=== PATIENT | male | born 1935 | race Caucasian/White ===

== ENCOUNTER 2016-11-18 05:23 | Day surgery (SDC) | payer MEDICARE, OTHER ==
[2016-11-11 09:26] LABS: HEMATOCRIT 42.7 % (37.9-51.0); HEMOGLOBIN 15.1 g/dL (13.5-17.0); HGB HCT DIFFERENCE 2.6; MEAN CORPUSCULAR HEMOGLOBIN 34.4 pg (27.0-33.4); MEAN CORPUSCULAR HGB CONC 35.4 g/dL (32.0-36.0); MEAN CORPUSCULAR VOLUME 97 fl (80-97); RED BLOOD COUNT 4.39 10^6/uL (4.35-5.55); RED CELL DISTRIBUTION WIDTH 12.9 % (11.5-14.0); WHITE BLOOD COUNT 6.4 10^3/uL (4.0-10.5)
[2016-11-11 09:51] LABS: ALANINE AMINOTRANSFERASE 110 U/L (21-72); ALBUMIN 3.8 g/dL (3.5-5.0); ALKALINE PHOSPHATASE 250 U/L (38-126); AMYLASE 163 U/L (30-110); ANION GAP 11 (5-19); ASPARTATE AMINO TRANSFERASE 57 U/L (17-59); BLOOD UREA NITROGEN 17 mg/dL (7-20); CALCIUM 9.7 mg/dL (8.4-10.2); CARBON DIOXIDE 30 mmol/L (22-30); CHLORIDE 100 mmol/L (98-107); GLUCOSE 92 mg/dL (75-110); POTASSIUM 4.5 mmol/L (3.6-5.0); SODIUM 140.8 mmol/L (137-145); TOTAL PROTEIN 6.8 g/dL (6.3-8.2)
[~2016-11-18 05:23] MED LIST: ACETAMINOPHEN 325 MG TABLET PO PRN; CEFAZOLIN SODIUM 1 GM in DEXTROSE 5%-WATER 50 ML IV PRN; LACTATED RINGERS 1000 ML IV PRN
[2016-11-18 06:22] LABS: PROTHROMBIN TIME 13.4 SEC (11.4-15.4)
[2016-11-18 06:23] LABS: PARTIAL THROMBOPLASTIN TIME 28.5 SEC (23.5-35.8)
[2016-11-18] MEDS ORDERED: BUPIVACAINE HCL 0.25 % INJ/PF (2.5 MG/1 ML) 30 ML VIAL ONE (06:47)
[2016-11-18] MEDS ORDERED: PROPOFOL INJ 200 MG/20 ML VIAL IV ONE (07:14)
[2016-11-18] MEDS ORDERED: MIDAZOLAM 2 MG/2 ML INJ ONE (07:14)
[2016-11-18] MEDS ORDERED: FENTANYL CITRATE INJ/PF 250 MCG/5 ML AMPULE ONE (07:14)
[2016-11-18] MEDS ORDERED: HYDROMORPHONE HCL INJ/PF 2 MG/ML AMPULE ONE (07:14)
[2016-11-18] MEDS ORDERED: EPHEDRINE SULFATE INJ 50 MG/1 ML AMPULE ONE (07:50)
[2016-11-18] MEDS ORDERED: MORPHINE SULFATE 10 MG/ML INJ IV PRN (08:08)
[2016-11-18] MEDS ORDERED: FENTANYL CITRATE INJ/PF 100 MCG/2 ML AMPUL IV PRN ×3 (08:08)
[2016-11-18] MEDS ORDERED: OXYCODONE-ACETAMINOPHEN 5-325 MG TABLET PO PRN ×5 (08:08→11:29)
[2016-11-18] MEDS ORDERED: PROMETHAZINE HCL INJ 25 MG/1 ML VIAL IV PRN ×2 (08:08)
[2016-11-18] MEDS ORDERED: MEPERIDINE HCL/PF INJ 25 MG/1 ML DISP.SYRIN IV PRN (08:08)
[2016-11-18] MEDS ORDERED: DIPHENHYDRAMINE HCL 50 MG/ML VIAL IV PRN (08:08)
[2016-11-18] MEDS ORDERED: ONDANSETRON HCL INJ/PF 4 MG/2 ML SDV IV PRN (09:03)
--- NOTE | 2016-11-18 09:03 | Operative Report ---
Operative Report DATE OF SURGERY: 11/18/16 PREOPERATIVE DIAGNOSIS: 1. Symptomatic cholelithiasis with cholecystitis. 2. Umbilical hernia POSTOPERATIVE DIAGNOSIS: Same OPERATION: 1. Laparoscopic cholecystectomy. 2. Open umbilical herniorrhaphy SURGEON: UBALDO ISAAC 1ST COLD ROLLING SUPERVISOR: EVA JAY ANESTHESIA: GA TISSUE REMOVED OR ALTERED: 1 gallbladder; remnants of hernia sac disposed of COMPLICATIONS: None ESTIMATED BLOOD LOSS: 25 mL INTRAOPERATIVE FINDINGS: See below PROCEDURE: After obtaining informed consent, the patient was taken to the operating room. General Anesthesia was induced; the arms were extended, and the abdomen was exposed, and prepped and draped in a sterile fashion. Instrumentation was set up for laparoscopic cholecystectomy. Surgical plan and surgical timeout were conducted. A semicircular incision was made above the umbilicus. Underlying hernia sac was entered, portions of incarcerated omentum debrided with electrocautery. The viable portion of omentum was oversewn with 2-0 Vicryl suture. He now had access to the peritoneal cavity. A 5 mm port was inserted and the peritoneal cavity and pneumoperitoneum was established. We then placed a 5 mm flexible laparoscope was inserted. Visualization of the peritoneal cavity confirmed safe uneventful entry of the initial port. Under direct visualization 3 additional 5 mm ports were established, one in the subxiphoid position and second in the subcostal position. Visualization of the hepatobiliary anatomy revealed no anatomic variations. A grasper was placed on the fundus of the gallbladder and the gallbladder is elevated over the right surface of the liver; a second grasper was used to grasp the infundibulum of the gallbladder. The neck of the gallbladder and junction with the cystic duct was dissected out. There was thickened inflammatory tissue securing the triangle of Calot. Therefore we began a top-down approach. Graspers were repositioned and the gallbladder was taken down with hook cautery and this down to the neck of the gallbladder. The only filmy adhesions were taken down under direct visualization. Eventually the gallbladder was suspended by the enlarged cystic duct and the cystic artery. The cystic artery was surrounded with a right angle clamp, clipped twice proximally and divided with laparoscopic scissors. The gallbladder was now suspended solely by the cystic duct. The thickened inflammatory tissue around the duct as evidenced of the photographs, we decided to secure the duct with PDS Endoloops. An Endoloop was placed around the neck of the gallbladder and the gallbladder amputated leaving the cystic duct opened. A were no stones or sludge in the cystic duct. We now secured the cystic duct stump with a Endoloop of PDS. Photos were taken. Graspers were repositioned and the gallbladder was removed uneventfully from the abdominal cavity through the super umbilical port site incision. The specimen was examined, then passed off to pathology for permanent analysis. We returned to the peritoneal cavity check for bleeding, and evidence of bile leak, and there was none. We Confirmed satisfactory placement of the Endoloop on cystic duct and an clips on the cystic artery were secured . At this point we felt the operation was complete. We now closed the umbilical hernia defect with 2 interrupted [id number] 0 PDS sutures in a vertically oriented fashion. The umbilicus was reconstructed with 3-0 Vicryl suture; all other incisions closed with 3-0 Vicryl. The subcutaneous tissue was then anesthetized with quarter percent Marcaine Sponge and needle counts are correct. All ports removed under direct visualization pneumoperitoneum evacuated, and 5 mm port wounds closed with 3-0 Vicryl suture, benzoin and Steri-Strips. The patient was extubated, and taken to the recovery room in stable condition. The physician automotive parts counter assistant, Ms. Jay, provided assistance during this case by: Assisting and port insertion, retracting tissue, instillation of local anesthesia and closure of skin incisions.
--- NOTE | 2016-11-18 09:08 | PDOC DISCHARGE SUMMARY ---
Discharge Summary (SDC) - Discharge Final Diagnosis: Symptomatic cholelithiasis with cholecystitis Date of Surgery: 11/18/16 Discharge Date: 11/18/16 Condition: Good Treatment or Instructions: [facility] [address], [place] [address] Discharge Instructions: Laparoscopic Surgery 1. General Information: a. DO NOT DRIVE a car or operate dangerous machinery for 3-4 days or while taking narcotic pain pills. b. DO NOT consume alcohol, tranquilizers, sleeping medications or any non- prescribed medications for 24 hours unless approved by your doctor or as long as taking narcotic prescription medications. c. DO NOT make important decisions or sign any important papers for the first 24 hours after surgery. d. When discharged home the same day of surgery have a responsible person with you for the first night. 2. Activity Restrictions: 4 weeks. a. NO heavy lifting, straining abdominal muscles, bending over a lot, yard work, house work, or sports for [address] for 3-4 days or while taking `percocet It is fine to go for walks, up and down steps, ride in a car. d. Elevate your head when sleeping/resting. 3. Treatment: a. You may shower 24 hours after surgery, no baths or swimming for 2 weeks. Remove band-aids or dressings before shower but leave paper strips (steri-strips ) on the skin to fall off on their own. If still on at postoperative visit they will be removed then. b. Drainage of fluid or blood is not unusual from an incision. If occurs, you can clean with peroxide and cotton ball daily and cover with dry gauze until the wound seals. c. If a lot of bleeding occurs, you can hold pressure with a gauze or cloth over the site for 10 minutes and it will usually stop. If bleeding continues you will need to call for possible evaluation in office or emergency room. 4. Medications: a. Percocet may be taken for pain as needed, one or two tablets every 4-6 hours. Stop the narcotic when able since you cannot take it and drive, and they cause constipation. You may switch to plain Tylenol, Advil or Aleve as you transition from the narcotic. Many adults find good pain relief with Advil 600- 800 mg three times a day with meals. This can cause indigestion, ulcers, and kidney problems with long-term use. b. You should resume all normal medications unless a change is specified by your doctors. c. Begin with clear liquids and may progress to your normal diet if not nauseated. No high fat, high protein foods the day of surgery. Normal diet 6. The following may occur after laparoscopic surgery: a. Shoulder or upper back ache from retained gas that should resolve in 1-2 days b. Soreness and bruising at incision sites will resolve with time. c. Scrotal swelling (labia in women) and bruising is often seen after hernia surgery. d. Sore throat e. Fatigue may last days to weeks. f. Difficulty urinating may occur and may need to come into emergency room for urinary catheter placement. 7. Notify Physician If: a. Worsening or pain not improved with pain medication b. Persistent nausea and vomiting c. Fever above 101 d. Persistent bleeding or swelling at operative site e. Unable to urinate and uncomfortable bladder 6-8 hours after surgery 8..Follow Up Care: a. Schedule a follow up appointment with your doctor for 2 weeks. In the event of any postoperative problems or questions or you may call the office during business hours or the On-Call physician evenings and weekends at [facility]. [facility] I understand the instructions for my postoperative care as described above and a copy has been given to me. Patient/Significant Other Witness Date Prescriptions: Oxycodone HCl/Acetaminophen [Percocet 5-325 mg Tablet] 1 tab PO 5XDP PRN #15 tab PRN Reason: Discharge Diet: As Tolerated Discharge Activity: Activity As Tolerated Home Care Assistance: None Needed Report the Following to Your Physician Immediately: Shortness of Breath, Increase in Pain, Fever over 101 Degrees
[2016-11-18] MEDS ORDERED: FENTANYL CITRATE INJ/PF 100 MCG/2 ML AMPUL ONE (09:32)
[2016-11-18] MEDS ORDERED: ONDANSETRON HCL INJ/PF 4 MG/2 ML SDV ONE (12:24)
[2016-11-18] MEDS ORDERED: DEXAMETHASONE SOD PHOSPHATE INJ 4 MG/1 ML VIAL ONE (12:24)
[2016-11-18] MEDS ORDERED: NEOSTIGMINE METHYLSULFATE 10 MG/10 ML VIAL ONE (12:24)
[2016-11-18] MEDS ORDERED: LIDOCAINE 2% INJ-PF (20 MG/ML) 10 ML AMPUL ONE (12:24)
[2016-11-18] MEDS ORDERED: ROCURONIUM BROMIDE INJ 50 MG/5 ML VIAL IV ONE (12:24)
[2016-11-18] MEDS ORDERED: SUCCINYLCHOLINE CHLORIDE INJ 200 MG/10 ML VIAL ONE (12:24)
[2016-11-18] MEDS ORDERED: GLYCOPYRROLATE INJ 0.4 MG/2 ML VIAL ONE (12:24)
[2016-11-18 13:10] VITALS: BP 125/53
== END 2016-11-18 13:20 | disposition home or self-care (01) ==
LOC: OROUT 05:23
PROVIDERS: ATTEND Surgery
PROC: 0FT44ZZ Resection of Gallbladder, Percutaneous Endoscopic Approach (ICD-10-PCS; 2016-11-18)
PROC: 0WQF0ZZ Repair Abdominal Wall, Open Approach (ICD-10-PCS; principal; 2016-11-18 07:30)
DX: K80.10 Calculus of gallbladder with chronic cholecystitis without obstruction (principal); K42.9 Umbilical hernia without obstruction or gangrene; R17 Unspecified jaundice; G47.30 Sleep apnea, unspecified; I10 Essential (primary) hypertension; E78.00 Pure hypercholesterolemia, unspecified; M19.90 Unspecified osteoarthritis, unspecified site; I48.91 Unspecified atrial fibrillation; Z95.1 Presence of aortocoronary bypass graft; Z79.899 Other long term (current) drug therapy; Z79.82 Long term (current) use of aspirin; I25.2 Old myocardial infarction
CPT/HCPCS: 86900; 86901; 36415 ×2; 86850; 82150; 85027; 85610; 85730; 80076; 80048; 88304 ×2; 49585; 47562; J2250; J0690; J3490 ×3; J1100; J3010 ×2; A9270; J0330; J2405; J2704; 790; J1170

== ENCOUNTER 2017-01-07 08:51 | Emergency (ER) | payer MEDICARE, OTHER ==
--- NOTE | 2017-01-07 10:11 | ER Document Report ---
ED Cardiac - General Chief Complaint: Chest Pain Stated Complaint: CHEST PAIN Notes: The patient is a 81-year-old male, past medical history CAD with 2 stents placed 04/29 at [place], CABG, A fib, GERD, presents with 1 day of chest pressure that started at rest. He says the pressure comes and goes and is not associated with activity. His last stress test was one year ago. He follows with Dr. Wilcox, his community specialist, and was told to come the emergency room if he ever develops chest pain or pressure. He took a baby aspirin this morning. Denies shortness of breath, leg swelling, nausea, vomiting, back pain , abdominal pain, fevers or cough. TRAVEL OUTSIDE OF THE [place] IN LAST 30 DAYS: No - Related Data Allergies/Adverse Reactions: atorvastatin [From Lipitor] Allergy (Severe, Verified 01/07/17 09:04) leg cramps venom-wasp [Wasp Venom] Allergy (Severe, Verified 01/07/17 09:04) Anaphylaxis adhesive tape [Adhesive Tape] Allergy (Intermediate, Verified 01/07/17 09:04) RASH Past Medical History - General Information source: Patient - Social History Smoking Status: Never Smoker Chew tobacco use (# tins/day): No Frequency of alcohol use: None Drug Abuse: None Family History: Arthritis, CAD, Hyperlipidemia, Hypertension Patient has suicidal ideation: No Patient has homicidal ideation: No - Past Medical History Cardiac Medical History: Reports: Hx Atrial Fibrillation, Hx Coronary Artery Disease, Hx Heart Attack - x2-2015,triple bypass, Hx Hypercholesterolemia, Hx Hypertension - on meds Pulmonary Medical History: Reports: Hx Pneumonia - hx of years ago Denies: Hx Asthma, Hx Bronchitis, Hx COPD - sleep apnea-cpap Neurological Medical History: Denies: Hx Cerebrovascular Accident, Hx Seizures Renal/ Medical History: Denies: Hx Peritoneal Dialysis GI Medical History: Reports: Hx Gastroesophageal Reflux Disease, Hx Colonoscopy , Hx Endoscopy. Denies: Hx Hepatitis, Hx Hiatal Hernia, Hx Ulcer Musculoskeltal Medical History: Reports Hx Arthritis - generalized, Reports Hx Musculoskeletal Deformity, Reports Hx Musculoskeletal Trauma Psychiatric Medical History: Denies: Hx Depression Traumatic Medical History: Reports: Hx Fractures Infectious Medical History: Denies: Hx Hepatitis Past Surgical History: Reports: Hx Abdominal Surgery - HERNIA, Hx Cardiac Surgery - CABG, TRIP BYPASS, STENTS, Hx Coronary Artery Bypass Graft - 2013, Hx Coronary Stent - x2. Last stent 05/01/15., Hx Inguinal Hernia, Hx Orthopedic Surgery - rotator cuff. Denies: Hx Open Heart Surgery, Hx Pacemaker - Immunizations Immunizations up to date: Yes Hx Diphtheria, Pertussis, Tetanus Vaccination: Yes - 10/18/15 Hx Pneumococcal Vaccination: 11/15/07 Review of Systems - Review of Systems Notes: REVIEW OF SYSTEMS: CONSTITUTIONAL: -fevers, -chills EENT: -eye pain, -difficulty swallowing, -nasal congestion CARDIOVASCULAR: +chest pain, -syncope RESPIRATORY: -cough, -SOB GASTROINTESTINAL: -abdominal pain, - nausea, -vomiting, -diarrhea GENITOURINARY: -dysuria, -hematuria MUSCULOSKELETAL: -back pain, -neck pain SKIN: -rash or skin lesions. HEMATOLOGIC: -easy bruising or bleeding. LYMPHATIC: -swollen, enlarged glands. NEUROLOGICAL: -altered mental status or loss of consciousness, -headache, - neurologic symptoms PSYCHIATRIC: -anxiety, -depression. ALL OTHER SYSTEMS REVIEWED AND NEGATIVE. Physical Exam - Vital signs Vitals: Temp Pulse Resp BP Pulse Ox 97.6 F 106 H 16 153/67 H 99 01/07/17 09:02 01/07/17 09:02 01/07/17 09:02 01/07/17 09:02 01/07/17 09:02 - Notes Notes: PHYSICAL EXAMINATION: GENERAL: Well-appearing, well-nourished and in no acute distress. HEAD: Atraumatic, normocephalic. EYES: Pupils equal round and reactive to light, extraocular movements intact, sclera anicteric, conjunctiva are normal. ENT: nares patent, oropharynx clear without exudates. Moist mucous membranes. NECK: Normal range of motion, supple without lymphadenopathy LUNGS: Breath sounds clear to auscultation bilaterally and equal. No wheezes rales or rhonchi. HEART: Regular rate and rhythm without murmurs ABDOMEN: Soft, nontender, normoactive bowel sounds. No guarding, no rebound. No masses appreciated. EXTREMITIES: Normal range of motion, no pitting or edema. No cyanosis. NEUROLOGICAL: Cranial nerves grossly intact. Normal speech, normal gait. Normal sensory, motor, and reflex exams. PSYCH: Normal mood, normal affect. SKIN: Warm, Dry, normal turgor, no rashes or lesions noted. Course - Re-evaluation Re-evalutation: Pt has HEART score of 7. Symptoms atypical for PE and/or aortic dissection. Patient requires observation for further evaluation and treatment of his chest pain. He says he is a patient of Dr. Crowley. 01/07/17 13:35 First troponin negative. Placed call to Dr. Crowley's office and spoke to nurse. Awaiting callback from Dr. Crowley. 01/07/17 14:[address] Crowley's office again. Awaiting callback. 01/07/17 14:[address] Crowley and he has accepted patient as Tele Obs. - Vital Signs Vital signs: Temp Pulse Resp BP Pulse Ox 97.6 F 106 H 17 133/62 H 98 01/07/17 09:02 01/07/17 09:02 01/07/17 17:31 01/07/17 17:31 01/07/17 17:31 - Laboratory Result Diagrams: 01/07/17 09:31 01/07/17 11:17 Laboratory results interpreted by me: 01/07/17 01/07/17 01/07/17 09:31 11:17 12:28 MCV 98 H MCH 33.6 H Total Bilirubin 1.4 H ALT 19 L Creatine Kinase 25 L NT-Pro-B Natriuret Pep 722 H - Diagnostic Test Radiology reviewed: Image reviewed, Reports reviewed Radiology results interpreted by me: CXR: NAD - EKG Interpretation by Me EKG shows normal: Sinus rhythm, [place], Intervals, QRS Complexes, ST-T Waves Rate: Normal Rhythm: PVC's Discharge - Discharge Clinical Impression: Chest pain Qualifiers: Chest pain type: unspecified Qualified Code(s): R07.9 - Chest pain, unspecified Condition: Stable Disposition: HOME, SELF-CARE Admitting Provider: Carline Unit Admitted: Telemetry
[2017-01-07] MEDS ORDERED: ASPIRIN 81 MG TABLET, CHEWABLE PO ONE (10:44)
[2017-01-07 10:49] LABS: ABSOLUTE EOSINOPHILS # (AUTO) 0.1 10^3/uL (0.0-0.6); ABSOLUTE LYMPHOCYTES (AUTO) 1.4 10^3/uL (0.5-4.7); ABSOLUTE MONOCYTES (AUTO) 0.4 10^3/uL (0.1-1.4); ABSOLUTE NEUT (AUTO) 5.7 10^3/uL (1.7-8.2); BASOPHILS % (AUTO) 0.4 % (0-2); EOSINOPHILS % (AUTO) 0.7 % (0-6); HEMATOCRIT 46.2 % (37.9-51.0); HEMOGLOBIN 15.9 g/dL (13.5-17.0); HGB HCT DIFFERENCE 1.5; LYMPHOCYTES % (AUTO) 17.8 % (13-45); MEAN CORPUSCULAR HEMOGLOBIN 33.6 pg (27.0-33.4); MEAN CORPUSCULAR HGB CONC 34.3 g/dL (32.0-36.0); MEAN CORPUSCULAR VOLUME 98 fl (80-97); MONOCYTES % (AUTO) 5.8 % (3-13); RED BLOOD COUNT 4.72 10^6/uL (4.35-5.55); RED CELL DISTRIBUTION WIDTH 12.8 % (11.5-14.0); SEGMENTED NEUTROPHILS % (AUTO) 75.3 % (42-78); WHITE BLOOD COUNT 7.6 10^3/uL (4.0-10.5)
[2017-01-07 11:48] LABS: CALCIUM 9.9 mg/dL (8.4-10.2); GLUCOSE 95 mg/dL (75-110)
[2017-01-07 11:49] LABS: ALANINE AMINOTRANSFERASE 19 U/L (21-72); ALBUMIN 4.2 g/dL (3.5-5.0); ALKALINE PHOSPHATASE 94 U/L (38-126); ANION GAP 10 (5-19); ASPARTATE AMINO TRANSFERASE 22 U/L (17-59); BILIRUBIN,TOTAL 1.4 mg/dL (0.2-1.3); BLOOD UREA NITROGEN 14 mg/dL (7-20); CARBON DIOXIDE 28 mmol/L (22-30); CHLORIDE 103 mmol/L (98-107); CREATINE KINASE 25 U/L (55-170); CREATININE RESULT 0.91 mg/dL (0.52-1.25); LIPASE 71.3 U/L (23-300); POTASSIUM 4.5 mmol/L (3.6-5.0); SODIUM 141.2 mmol/L (137-145); TOTAL PROTEIN 6.9 g/dL (6.3-8.2)
[2017-01-07 13:23] LABS: TROPONIN I < 0.012 ng/mL
--- NOTE | 2017-01-07 15:21 | EKG REPORT ---
SEVERITY:- ABNORMAL ECG - SINUS RHYTHM : Confirmed by: Fatemeh Montanez MD 07-Jan-2017 15:20:21
[2017-01-07 17:50] VITALS: BP 133/62
== END 2017-01-07 18:08 | disposition home or self-care (01) ==
LOC: ER 08:51 → EH 15:46 → UNDOADMOB 15:46 → UNDODISOB 18:07
DX: R07.89 Other chest pain (principal); I49.3 Ventricular premature depolarization; I25.10 Atherosclerotic heart disease of native coronary artery without angina pectoris; I25.2 Old myocardial infarction; I10 Essential (primary) hypertension; Z98.61 Coronary angioplasty status; Z88.8 Allergy status to other drugs, medicaments and biological substances; Z91.018 Allergy to other foods; Z87.892 Personal history of anaphylaxis; Z91.038 Other insect allergy status; Z95.1 Presence of aortocoronary bypass graft; Z87.01 Personal history of pneumonia (recurrent); Z82.49 Family history of ischemic heart disease and other diseases of the circulatory system
CPT/HCPCS: 93005; 99285; 36415; 82550; 83690; 85025; 80076; 80048; 84484; 83880; 71010; 93010; A9270

== ENCOUNTER → 2017-01-28 | Outpatient (CLI) | payer MEDICARE, OTHER ==
[~2017-01-28] MED LIST changes: -ACETAMINOPHEN 325 MG TABLET PO PRN; +AMINOPHYLLINE INJ/PF 250 MG/10 ML SDV IV ONE; -CEFAZOLIN SODIUM 1 GM in DEXTROSE 5%-WATER 50 ML IV PRN; -LACTATED RINGERS 1000 ML IV PRN; +REGADENOSON INJ 0.4 MG/5 ML DISP.SYRIN IV ONE
--- NOTE | 2017-01-29 09:59 | DRAGON STRESS TEST REPORT ---
INTRAVENOUS LEXISCAN CARDIOLITE STRESS TEST USING SINGLE PHOTON EMMISION COMPUTERIZED TOMOGRAPHIC. DATE OF PROCEDURE: January 28, 2017 INDICATION : Coronary artery disease, ventricular dysrhythmia CARDIAC RISK FACTORS: Known CAD RESTING EKG: Sinus rhythm with occasional PAC, minor nonspecific ST segment changes STRESS EKG: No significant changes noted with LexiScan bolus REASON FOR TERMINATION: Protocol. PROCEDURE REPORT: Baseline heart rate 68 beats per minute with blood pressure of 119/48. Patient had no significant complaints. Heart rate at 2 minutes post bolus 86 with a blood pressure of 130/64. 3 minutes post bolus heart rate 79 with blood pressure of 134/62. No significant EKG changes were noted. Patient had no significant complaints during the procedure or postprocedure. CONCLUSIONS: Normal EKG and hemodynamic response to IV LexiScan. NUCLEAR DATA: At rest the patient was given 12.45 millicuries of technetium 99 sestamibi injected intravenously. As per protocol rest gated SPECT images were obtained. Subsequently the patient was given intravenous LexiScan at a dose of 0.4 mg in 5 mL intravenously, followed by flush with normal saline. Subsequently the stress dose of 6.3 millicuries of technetium 99 sestamibi was injected intravenously. As per protocol stress gated images were obtained. NUCLEAR INTERPRETATION: Both raw and processed data were used for interpretation. Visual, qualitative, computer-generated quantitative data was used. There was good myocardial uptake of technetium compound. Increased Motion artifact noted and some soft tissue attenuations were noted. Increased visceral uptake was noted. A predominantly mild to moderate fixed defect noted in the basal inferolateral wall of the left ventricle with minimal amount of surrounding transient perfusion defect, indicative of underlying scar in the basal inferolateral wall with minimal area of surrounding ischemia EKG gated imaging showed LV EF at [63] %, rest and stress gated EF similar visually. T. I D. ratio was [1.06]. Lung heart ratio noted to be within normal limits [0.27]. No significant extracardiac and abnormal radiotracer activities were noted. RV free wall uptake was noted to be []. IMPRESSION: Also refer to comments under nuclear interpretation. Also test results needs to be interpreted in the context of pretest probability. 1. A predominantly mild to moderate fixed defect, consistent with scar noted in the basal inferolateral wall of the left ventricle with minimal amount of surrounding transient perfusion defect consistent with ischemia. Findings Indicative of underlying scar in the basal inferolateral wall with minimal area of surrounding ischemia. 2. There is no other scintigraphic evidence of myocardial infarction/scar, or other areas of ischemia. 3. EKG gated imaging shows left ejection fraction of approximately 42 % with borderline hypokinesia of the basal inferolateral wall. 4. Clinical correlation requested as worse disease or balanced ischemia could be missed. In approximately 10% of the cases Lexiscan may not cause adequate vasodilatory stress. RECOMMENDATIONS: Aggressive risk factor modification, medical therapy. Further evaluation with cardiac catheterization etc. may be indicated depending on symptoms. Clinical correlation with echocardiogram derived ejection fraction. Inability to exercise by itself can lead to increased cardiovascular event risks. Consider cardiology consultation and or follow-up if clinically indicated. I AM AVAILABLE FOR CARDIOLOGY CONSULTATION AND FOLLOWUP IF REQUESTED BY CYNTHIA Angeles M.D., REANNA Hard Candy Batch Mixer medical insurance clerk, Board certified in cardiovascular diseases, Nuclear cardiology, Echocardiography Cardiac CT and cardiac MRI Ph. [phone] [facility]ENTERPap[facility]
== END ==
LOC: RAD 07:36
PROVIDERS: ATTEND Internal Medicine Cardiovascular Disease
DX: I25.10 Atherosclerotic heart disease of native coronary artery without angina pectoris (principal)
CPT/HCPCS: 93017; 78452; A9500; J2785; J0280; Q9969

== ENCOUNTER → 2019-03-20 | Outpatient (CLI) | payer OTHER, MEDICARE ==
--- NOTE | 2019-03-20 11:43 | RADIOLOGY REPORT (SQ) ---
EXAM DESCRIPTION: LUMBAR SPINE COMPLETE COMPLETED DATE/TIME: 03/20/2019 11:04 am REASON FOR STUDY: LUMBAGO WITH SCIATICA M54.40 LUMBAGO WITH SCIATICA, UNSPECIFIED SIDE COMPARISON: None. NUMBER OF VIEWS: Five views including obliques. TECHNIQUE: AP, lateral, oblique, and sacral radiographic images acquired of the lumbar spine. LIMITATIONS: None. FINDINGS: MINERALIZATION: Normal. SEGMENTATION: Normal. No transitional anatomy. ALIGNMENT: Normal. VERTEBRAE: Maintained height. No fracture or worrisome bone lesion. DISCS: Diffuse disc space loss of height with mild anterior osteophyte formation POSTERIOR ELEMENTS: Pedicles and facets are intact. No pars defect or posterior arch defects. Lower lumbar facet arthropathy at L4-5 and L5-S1 HARDWARE: None in the spine. PARASPINAL SOFT TISSUES: Calcified abdominal aorto. Ultrasound recommended to exclude infrarenal abd ominal aortic aneurysm. PELVIS: SI joints mildly sclerotic. Remainder of the pelvis not in the field of view OTHER: No other significant finding. IMPRESSION: Diffuse lumbar degenerative disc changes with lower lumbar facet arthropathy and mild bi lateral SI joint sclerosis Calcified abdominal aorta. Ultrasound recommended to evaluate for abdominal aortic aneurysm TECHNICAL DOCUMENTATION: JOB ID: [id number] [employer]- All Rights Reserved Reading location - IP/workstation name: [email or web address]
== END ==
LOC: OD 10:23
PROVIDERS: ATTEND Internal Medicine
DX: M54.40 Lumbago with sciatica, unspecified side (principal)
CPT/HCPCS: 72110

== ENCOUNTER → 2019-03-31 | Outpatient (CLI) | payer MEDICARE, OTHER ==
--- NOTE | 2019-03-31 08:59 | RADIOLOGY REPORT (SQ) ---
EXAM DESCRIPTION: U/S ABD AORTIC SCREENING COMPLETED DATE/TIME: 03/31/2019 7:31 am REASON FOR STUDY: ATHEROSCLEROSIS OR AORTA (I70.0) I70.0 ATHEROSCLEROSIS OF AORTA COMPARISON: None. TECHNIQUE: Static and dynamic grayscale images acquired of the aorta and stored on PACs. Selected co cornell Doppler and spectral images recorded. LIMITATIONS: None. FINDINGS: AORTIC CALIBER MAXIMAL PROXIMAL: 1.9 cm. MID: 2.5 cm. DISTAL: 2.6 a cm. ILIAC DIAMETER RIGHT: 1.9 cm. LEFT: 1.5 cm. OTHER: No other significant finding. IMPRESSION: NO ABDOMINAL AORTIC ANEURYSM. COMMENT: Aortic aneurysm imaging followup: 2.6-2.9 cm Every 5 years* *Based upon the Society for Vascular Surgery Guidelines: J Vasc Surg. 2009 Oct;50(4 Suppl):S2-49 *For aortas of maximum diameter of 2.6-2.9 cm meeting the criteria for AAA (?1.5 x proximal normal se gment) TECHNICAL DOCUMENTATION: JOB ID: [id number] [employer]- All Rights Reserved Reading location - IP/workstation name: [email or web address]
== END ==
LOC: RAD 07:05
PROVIDERS: ATTEND Internal Medicine
DX: I70.0 Atherosclerosis of aorta (principal)
CPT/HCPCS: 76706